=== PATIENT | female | born 2000 | race Caucasian/White ===

== ENCOUNTER 2020-04-24 06:46 | Outpatient (NON) | payer OTHER, SELFPAY ==
[2020-04-24 22:58] LABS: SARS-CoV-2 RNA PCR Negative
== END 2020-04-24 06:47 ==
PROVIDERS: PCP Pediatrics; Visit Provider Pediatrics
DX: Z20.828 Contact with and (suspected) exposure to other viral communicable diseases (principal); R50.9 Fever, unspecified; Q90.9 Down syndrome, unspecified
CPT/HCPCS: 87635; C9803; U0003

== ENCOUNTER 2022-03-01 10:23 | Emergency (ER) | payer OTHER, SELFPAY ==
[2022-03-01 10:34] VITALS: BP 102/61; PULSE 90; RESP 18; TEMP 36.7; O2SAT 100
--- NOTE | 2022-03-01 10:40 | ED.URI ---
HPI - URI/Sore Throat General Chief Complaint: Upper Respiratory Infection Stated Complaint: uri Time Seen by Provider: 03/01/22 10:55 Source: patient and RN notes reviewed Mode of arrival: ambulatory Limitations: no limitations History of Present Illness HPI Narrative: 21-year-old nonverbal female with history of Down syndrome presents with concern for red left eye with green drainage, nasal congestion, and green nasal drainage. Caregiver reports she has had symptoms for about 4 days. Mother reports she has frequent ear infections. Reports they gave her cough medicine without relief. MD elicited complaint: nasal congestion and other (eye drainage) Related Data Allergies Allergy/AdvReac Type Severity Reaction Status Date / Time No Known Allergies Allergy Verified 03/01/22 10:24 Review of Systems Review of Systems: CONSTITUTIONAL: denies fever, chills or decreased activity HEENT: Denies any eye discharge or redness. Reports green eye drainage and green nasal drainage CHEST: denies any cough, wheezing, or difficulty breathing CARDIOVASCULAR: Denies any rapid heart rate or cool extremities ABDOMINAL: Denies any vomiting, diarrhea, or poor feeding : Denies any dysuria, decreased urine frequency SKIN: Denies rash MUSCULOSKELETAL: Denies any extremity disuse or swelling NEURO: Denies any lethargy, irritability, or seizures All systems reviewed & are unremarkable except as noted in HPI and below PMFSH Comments At time of signature, agree with nursing past medical, surgical, social and family history. There is no relevant family history pertinent to the presenting complaint Exam Narrative: GENERAL: Nontoxic-appearing and in no acute distress. HEAD: Normocephalic EYES: PERRLA, conjunctivae clear ENT: Nares clear, green discharge. Mucous membranes moist. Left TM pearly barrera with dull light reflex right TM erythematous; no tragal tenderness. O NECK: Supple. No lymphadenopathy CHEST: Clear to auscultation, breath sounds equal. No wheezing, rhonchi, rales, or stridor. No respiratory distress, speaks in full sentences. HEART: Regular rate and rhythm. No murmur heard. SKIN: Warm, dry, no rash. NEURO: Alert and oriented x3. PSYCH: Normal mood and affect Course Course Emergency Course: Patient is aware of diagnosis, understands and agrees to treatment plan. Anticipatory guidance given. Patient agrees to follow-up as directed and is aware of reasons to seek care at the emergency department. Portions of this record may have been created with voice recognition software Level of Care: Express Care Visit Vital Signs Vital signs: Vital Signs Temperature 98.1 F 03/01/22 10:34 Pulse Rate 90 03/01/22 10:34 Respiratory Rate 18 03/01/22 10:34 Blood Pressure 102/61 03/01/22 10:34 Pulse Oximetry 100 03/01/22 10:34 Oxygen Delivery Room Air 03/01/22 10:34 Temperature 98.1 F 03/01/22 10:34 Pulse Rate 90 03/01/22 10:34 Respiratory Rate 18 03/01/22 10:34 Blood Pressure 102/61 03/01/22 10:34 Pulse Oximetry 100 03/01/22 10:34 Oxygen Delivery Room Air 03/01/22 10:34 Reviewed. MDM - URI/Sore Throat MDM Narrative Medical decision making narrative: Differential diagnosis considered: Khoury virus, strep pharyngitis, allergic rhinitis, upper respiratory tract infection, sinusitis, rhinosinusitis, nasopharyngitis. viral pharyngitis, otitis media, otitis externa, pneumonia, bronchitis, viral cough syndrome, viral syndrome, and influenza. Exam findings show no acute concerns or changes; patient is non-toxic appearing and is in no distress. Patient is appropriate for outpatient treatment and follow-up. Lab Data Attestation: I reviewed the patient's lab results. Critical Care Time Critical Care Time Critical Care Time: No Discharge Plan Discharge Clinical Impression: Otitis media, Conjunctivitis Patient Disposition: Home, Self-Care Condition: Stable Instructions: Antibiotic Form, Conjun
== END 2022-03-01 11:08 | disposition home or self-care (01) ==
PROVIDERS: Emergency Provider Nurse Practitioner; PCP Family Medicine
DX: H66.91 Otitis media, unspecified, right ear (principal); H10.9 Unspecified conjunctivitis; Q90.9 Down syndrome, unspecified
CPT/HCPCS: 99213; G0463

== ENCOUNTER 2023-04-11 10:03 | Outpatient (CLI) | payer OTHER, SELFPAY | END 2023-04-11 10:04 | disposition home or self-care (01) | PROVIDERS: PCP Family Medicine | DX: H91.93 Unspecified hearing loss, bilateral (principal) | CPT/HCPCS: 92567 ==

== ENCOUNTER 2024-04-16 09:10 | Outpatient (CLI) | payer OTHER, SELFPAY | END 2024-04-16 09:11 | disposition home or self-care (01) | LOC: ANHBWCAUD 09:11 | PROVIDERS: PCP Family Medicine; Visit Provider Physician Assistant | DX: H91.93 Unspecified hearing loss, bilateral (principal) | CPT/HCPCS: 92567 ==

== ENCOUNTER 2024-05-14 08:44 | Outpatient (CLI) | payer OTHER, SELFPAY | END 2024-05-14 08:45 | disposition home or self-care (01) | PROVIDERS: PCP Family Medicine; Visit Provider Family Medicine | DX: H61.23 Impacted cerumen, bilateral (principal); H69.83 Other specified disorders of Eustachian tube, bilateral | CPT/HCPCS: 92555; 92567; 92579 ==

== ENCOUNTER 2025-04-21 08:52 | Outpatient (CLI) | payer OTHER, SELFPAY ==
--- OUTSIDE RECORDS SUMMARY | 2025-04-21 09:07 | XMS_ITS | Encounter Summary ---
Author Organization [facility] Address [address] [place] [address] Phone Care Team Providers Care Audit Analyst Name Role Phone Larissa Peralta NP Primary Care Provider [phone] Encounter Details Date Type Department Care Team (Latest Contact Info) Description 04/15/2025 Results Follow-Up [facility] [address] [place] [address] [place] [address] Jocelyn Yu MD [address] [place] [address] Tissue transglutaminase IgA (TGG-IgA Ab) Social History Tobacco Use Types Packs/Day Years Used Date Smoking Tobacco: Never Smokeless Tobacco: Never [facility] Utilities Answer Date Recorded In the past 12 months has [employer], gas, oil, or water [employer] threatened to shut off services in your home? No 02/11/2024 Social Connection and Isolation Panel Answer Date Recorded In a typical week, how many times do you talk on the phone with family, friends, or neighbors? Patient declined 02/11/2024 How often do you get togethe r with friends or relatives? Patient declined 02/11/2024 How often do you attend jain or tenriism serv ices? Patient declined 02/11/2024 Do you belong to any clubs o r organizations such as jain groups, unions, fraternal or athletic groups, or school groups? Patient declined 02/11/2024 How often do you attend meet ings of the clubs or organizations you belong to? Patient declined 02/11/2024 Are you , , di vorced, , never , or living with a partner? Never 02/11/2024 AUDIT-C Answer Date Recorded Q1: How often do you have a drink containing alcohol? Never 02/04/2024 Q2: How many drinks containi ng alcohol do you have on a typical day when you are drinking? Patient does not drink Q3: How often do you have si x or more drinks on one occasion? Never 02/04/2024 Overall Financial Resource Strain (CARDIA) Answe r Date Recorded How hard is it for you to pa y for the very basics like food, housing, medical care, and heating? Not very hard 02/11/2024 PHQ-2 Answer Date Recorded PHQ-2 Total Score (If total score is 3 or more points, staff should administer the PHQ-9) 0 11/28/2022 Hunger Vital Sign Answer Date Recorded Within the past 12 months, y ou worried that your food would run out before you got the money to buy more. Never true 02/11/20 24 Within the past 12 months, t he food you bought just didn't last and you didn't have money to get more. Never true 02/11/2024 PRAPARE - Transportation Answer Date Re corded In the past 12 months, has l ack of transportation kept you from medical appointments or from getting medications? No 01/14 In the past 12 months, has l ack of transportation kept you from meetings, work, or from getting things needed for daily living? No 02/11/2024 Housing Stability Vital Sign Answer Wesley e Recorded In the last 12 months, was t here a time when you were not able to pay the mortgage or rent on time? No 02/11/2024 In the past 12 months, how m any times have you moved where you were living? 0 02/11/2024 At any time in the past 12 m [facility], were you homeless or living in a snf (including now)? No 02/11/2024 Personal Safety Answer Date Recorded Have you ever been in or are you currently in a harmful physical or emotional relationship or is someone making you feel afraid or unsafe? 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 [address] PCP - General Canvas Goods Maker 03/31/25 documented as of this encounter
--- OUTSIDE RECORDS SUMMARY | 2025-04-21 09:07 | XMS_ITS | Encounter Summary ---
Author Organization [facility] Address [address] [place] [address] Phone Care Team Providers Care Rigging And Controls Aircraft Mechanic Name Role Phone Unknown, Notinfile Primary Care Provider Unavail able Larissa Peralta NP Primary Care Provider [phone] Encounter Details Date Type Department Care Team (Late st Contact Info) Description 06/24/2024 Telephone [facility] Medicine Gastroenterology [address] [facility] [address] [place] [address] [place] [id number] Juli Dickson LPN Social History Tobacco Use Types Packs/Day Years Used Date Smoking Tobacco: Never Smokeless Tobacco: Never [facility] Utilities Answer Date Recorded In the past 12 months has e electric, gas, oil, or water company threatened to shut off services in your home? No 02/11/2024 Social Connection and Isolation Panel Answer Date Recorded In a typical week, how many times do you talk on the phone with family, friends, or neighbors? Patient declined 02/11/2024 How often do you get togethe r with friends or relatives? Patient declined 02/11/2024 How often do you attend anabaptist or adventist serv ices? Patient declined 02/11/2024 Do you belong to any clubs o r organizations such as anabaptist groups, unions, fraternal or athletic groups, or [...] any time in the past 12 m [facility], were you homeless or living in a fci (including now)? No 02/11/2024 Personal Safety Answer Date Recorded Have you ever been in or are you currently in a harmful physical or emotional relationship or is someone making you feel afraid or unsafe? 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 [address] PCP - General Director Trial 03/31/25 documented as of this encounter
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
--- OUTSIDE RECORDS SUMMARY | 2025-04-21 09:07 | XMS_ITS | Encounter Summary ---
Author Organization [facility] Address [address] [place] [address] Phone Care Team Providers Care Patient Access Name Role Phone Unknown, Notinfile Primary Care Provider Unavail able Larissa Peralta NP Primary Care Provider [phone] Encounter Details Date Type Department Care Team (Late st Contact Info) Description 04/18/2024 Orders Only [facility] Scanning, Provider Social History Tobacco Use Types Packs/Day Years Used Date Smoking Tobacco: Never Smokeless Tobacco: Never [facility] Utilities Answer Date Recorded In the past 12 months has th [employer] electric, gas, oil, or water company threatened [...] declined 02/11/2024 How often do you attend rastafari or mormonism serv ices? Patient declined 02/11/2024 Do you belong to any clubs o r organizations such as rastafari groups, unions, fraternal or athletic groups, or [...] any time in the past 12 m [facility], were you homeless or living in a correction (including now)? No 02/11/2024 Personal Safety Answer Date Recorded Have you ever been in or are you currently in a harmful physical or emotional relationship or is someone making you feel afraid or unsafe? Patient unable to answer 01/28/2024 Comments No Sex and Gender Information Value Date Recorded Sex Assigned at Not on file Legal Sex Female 12:40 AM ROADABILITY MACHINE OPERATOR Gender Identity Female 05/30/2021 1:30 PM ROADABILITY MACHINE OPERATOR Sexual Orientation Not on file documented as of this encounter Plan of Treatment Not on file documented as of this encounter Procedures Procedure Name Priority Date/Time Associated Diagnosis Comments SCAN - LABS 04/18/2024 documented in this encounter Results * SCAN - LABS (04/18/2024) us Provider Scanning Edited Result - Final documented in this encounter Visit Diagnoses Not on filedocumented in this encounter Care Teams Patient Access Relationship Specialty Start Date End Date Unknown, Notinfile PCP - General 02/15/24 03/30/25 Larissa Peralta, ACID BLOWER [address] [place] [address] PCP - General Malted Milk Mixer 03/31/25 documented as of this encounter
--- OUTSIDE RECORDS SUMMARY | 2025-04-21 09:07 | XMS_ITS | Encounter Summary ---
Author Organization [facility] Address [address] [place] [address] Phone Care Team Providers Care Health Editor Name Role Phone Unknown, Notinfile Primary Care Provider Unavail able Larissa Peralta NP Primary Care Provider [phone] Encounter Details Date Type Department Care Team (Late st Contact Info) Description 05/28/2024 Orders Only [facility] Scanning, Provider Social History Tobacco Use Types Packs/Day Years Used Date Smoking Tobacco: Never Smokeless Tobacco: Never [facility] Utilities Answer Date Recorded In the past 12 months has th [employer] electric, gas, oil, or water company threatened [...] declined 02/11/2024 How often do you attend latter-day or congregation serv ices? Patient declined 02/11/2024 Do you belong to any clubs o r organizations such as latter-day groups, unions, fraternal or athletic groups, or [...] any time in the past 12 m [facility], were you homeless or living in a alf (including now)? No 02/11/2024 Personal Safety Answer Date Recorded Have you ever been in or are you currently in a harmful physical or emotional relationship or is someone making you feel afraid or unsafe? Patient unable to answer 01/28/2024 Comments No Sex and Gender Information Value Date Recorded Sex Assigned at Not on file Legal Sex Female 12:40 AM MONOGRAM MACHINE OPERATOR Gender Identity Female 05/30/2021 1:30 PM MONOGRAM MACHINE OPERATOR Sexual Orientation Not on file documented as of this encounter Plan of Treatment Not on file documented as of this encounter Procedures Procedure Name Priority Date/Time Associated Diagnosis Comments SCAN - LABS 05/28/2024 documented in this encounter Results * SCAN - LABS (05/28/2024) us Provider Scanning Final Result documented in this encounter Visit Diagnoses Not on filedocumented in this encounter Care Teams Health Editor Relationship Specialty Start Date End Date Unknown, Notinfile PCP - General 02/15/24 03/30/25 Larissa Peralta, CARDIOPULMONARY SUPERVISOR [address] [place] [address] PCP - General Parts Professional 03/31/25 documented as of this encounter
--- OUTSIDE RECORDS SUMMARY | 2025-04-21 09:07 | XMS_ITS | Clinical Summary ---
Author Organization [facility] Address [address] [place] [address] Care Team Providers Care Welding Systems And Equipment Repairer Name Role Phone Quinn Caldera MD Primary Care Provider Source Comments [facility],non-owned Affiliates and Associated Physician Practices is amultiple site organization consisting of ambulatory clinics and hospital sitesin [place], [place], [place] and [place]. This disclosure is being madepursuant to the Care Everywhere program and may not contain all informatio navailable regarding this patient. Last updated 18.[facility] Allergies No known active allergies Medications * Be aware that medications may not be up to date on this document. Alwaysverify current medications with the patient. medroxyPROGESTE Elan (Depo-Provera) 150 MG/ML prefilled syringe Inject 150 (one hundred fifty) mg into muscle once Active vitamin D, cholecalciferol , 50 MCG (1999) tablet Take 1 (one) tablet by mouth once daily Active ascorbic acid (Vitamin C) 250 MG tablet 06/02/2023 Active cetirizine (ZyrTEC) 10 MG tablet 06/02/2023 Active furosemide (Lasix) 20 MG tablet Take 1 (one) tablet by mouth once daily Active spironolactone (Aldactone) 50 MG tablet Take 1 (one) tablet by mouth once daily Active busPIRone (Buspar) 5 MG tabletIndicatio ns:Anxiety Take 1 (one) tablet by mouth 2 times daily 62 tablet 3 03/18/2025 Active melatonin 3 MG tabletIndicatio ns:Anxiety Take 1 (one) tablet by mouth at bedtime 31 tablet 3 03/18/2025 Active Active Problems Problem Noted Date Diagnosed Date Active autistic disorder 03/18/2025 Anxiety 03/18/2025 Encounters Date Type Department Care Team Description 03/18/2025 3:20 PM CDT Video Visit [facility] Health Behavioral Health [address] [place] [address] Matilda Rodriguez APRN-CNP Anxiety ; Active autistic disorder (HCC) from Last 3 Months Social History Tobacco Use Types Packs/Day Years Used Date Smoking Tobacco: Never Smokeless Tobacco: Never Tobacco Cessation:Counseling Given: Yes Comments No Sex and Gender Information Value Date Recorded Sex Assigned at Not on file Legal Sex Female 5:39 AM DIRECTOR CHEMISTRY Gender Identity Not on file Sexual Orientation Not on file Last Filed Vital Signs Vital Sign Reading Time Taken Comments Blood Pressure 100/78 03/18/2025 2:26 PM CDT Pulse 73 03/18/2025 2:26 PM CDT Temperature - - Respiratory Rate - - Oxygen Saturation 98% 12/22/2024 3:09 PM CDT Inhaled Oxygen Concentration - - Weight 34 kg (75 lb) 03/18/2025 2:26 PM CDT Height - - Body Mass Index - - Plan of Treatment Upcoming Encounters Date Type Department Care Team (Late st Contact Info) Description 2025 3:20 PM DIRECTOR CHEMISTRY Video Visit [facility] [address] [place] [id number] Matilda Rodriguez APRN-CNP [address] [place] [address] Health Maintenance Due Date Last Done Comments HIV SCREENING 2014 HPV VACCINE (1 - 3-dose series) 2014 DTAP/TDAP/TD VACCINES (1 - Tdap) 2018 HEPATITIS B VACCINE (1 of 3 - 19+ 3-dose series) 2018 PAP SMEAR 2020 CHLAMYDIA/GONORRHEA SCREENING 11/30/2023 11/29/2022 DEPRESSION SCREENING 07/16/2024 COVID-19 VACCINE ( season) 2025 10/22/2020 INFLUENZA VACCINE (#1) 2025 , 04/09/2023, 06/27/2022, Additional history exists ZOSTER VACCINE (1 of 2) 2049 HEPATITIS C SCREENING Completed 11/29/2022 HIB VACCINE Aged Out No longer eligi ble based on patient's age to complete this topic MENINGOCOCCAL (Group B) VACCINE SHARED DECISION-MAKING Aged Out No longer eligible based on patient's age to complete this topic MENINGOCOCCAL GROUPS A/C/Y/W VACCINE Aged Out No longer eligible based on patient's age to complete this topic PNEUMOCOCCAL VACCINE Aged Out No long er eligible based on patient's age to complete this topic Insurance [facility] Care Teams Welding Systems And Equipment Repairer Relationship Specialty Start Date End Date Quinn Caldera MD [address] [place] [address] PCP - General 10/11/09
--- OUTSIDE RECORDS SUMMARY | 2025-04-21 09:07 | XMS_ITS | Encounter Summary ---
Author Organization [facility] Address [address] [place] [address] Phone Care Team Providers Care Instructional Facilitator Name Role Phone Betty Arellano DOLLYMAN, MANAGER ANALYTICAL Unavailable [phone] Lowell Castillo Primary Care Provider [phone] Reason for Visit * Reason Onset Date Comments Need Order 08/06/2024 Encounter Details Date Type Department Care Team (Late st Contact Info) Description 08/06/2024 Telephone [facility] [address] [place] [address] Lowell Castillo, PAC [address] [place] [address] Need Order Social History Tobacco Use Types Packs/Day Years Used Date Smoking Tobacco: Never Smokeless Tobacco: Never Alcohol Use Standard Drinks/Week Comments Never 0 (1 standard drink = 0.6 oz pur e alcohol) [facility] Utilities Answer Date Recorded In the past 12 months has e electric, gas, oil, or water company threatened to shut off services in your home? Patient unable to answer 11/08/2023 Social Connection and Isolation Panel Answer Date Recorded In a typical week, how many times do you talk on the phone with family, friends, or neighbors? Patient unable to answer 11/08/2023 How often do you get togethe r with friends or relatives? Patient unable to answer 11/08/2023 How often do you attend chur or pentecostalism services? Patient unable to answer 11/08/2023 Do you belong to any clubs o r organizations such as sabianism groups, unions, fraternal or athletic groups, or school groups? Patient unable to answer 11/08/2023 How often do you attend meet ings of the clubs or organizations you belong to? Patient unable to answer 11/08/2023 Are you , , di vorced, , never , or living with a partner? Patient unable to answer 11/08/2023 AUDIT-C Answer Date Recorded Q1: How often do you have a drink containing alcohol? Patient unable to answer 11/08/2023 Q2: How many drinks containi ng alcohol do you have on a typical day when you are drinking? Patient unable to answer Q3: How often do you have si x or more drinks on one occasion? Patient unable to answer 11/08/2023 Overall Financial Resource Strain (CARDIA) Answe r Date Recorded How hard is it for you to pa y for the very basics like food, housing, medical care, and heating? Patient unable to answer 11/08/2023 PHQ-2 Answer Date Recorded Total Score - Questions 1-9 0 01/13 [facility] - Occupational Stress Questionnaire Answer Date Recorded Do you feel stress - tense, restless, nervous, or anxious, or unable to sleep at night because your mind is troubled all the time - these days? Patient unable to answer 11/08/2023 Exercise Vital Sign Answer Date Recorde d On average, how many days pe r week do you engage in moderate to strenuous exercise (like a brisk walk)? Patient unable to answer 11/08/2023 On average, how many minutes do you engage in exercise at this level? Patient unable to answer 11/08/2023 Hunger Vital Sign Answer Date Recorded Within the past 12 months, y ou worried that your food would run out before you got the money to buy more. Patient unable to answer 11/08/2023 Within the past 12 months, t he food you bought just didn't last and you didn't have money to get more. Patient unable to answer 11/08/2023 PRAPARE - Transportation Answer Date Re corded In the past 12 months, has l ack of transportation kept you from medical appointments or from getting medications? Patient unable to answer 11/08/2023 In the past 12 months, has l ack of transportation kept you from meetings, work, or from getting things needed for daily living? Patient unable to answer 11/08/2023 Housing Stability [...] place to sleep or slept in a mcc (including now)? Patient unable to answer 11/08/2023 Sexually Active Control Partners Comments Never Injection Comments Unknown Sex and Gender Information Value Date Recorded Sex Assigned at Female 02/27/2023 9:17 AM CDT Legal Sex Female 12:35 PM SUPERVISOR COREMAKER Gender Identity Female 02/27/2023 9:17 AM CDT Sexual Orientation Not on file documented as of this encounter Miscellaneous Notes * Telephone Encounter - Lowell Castillo PAC - 08/06/2024 12:10 PM SUPERVISOR COREMAKER Just a lipid and TSH. Looks like hematology has ordered other labs that will cover her yearly fasting labs. Orders placed. RVISOR COREMAKER * Telephone Encounter - Yue Borjas RN - 08/06/2024 11:47 AM SUPERVISOR COREMAKER Situation: Annual lab orders Background: [facility] from [facility] contacting PCP office. Caller is listed on current personal direct sales representative designee form on file. Assessment: Juli was advised of future lab orders. Ujli requesting to confirm with PCP if any other lab work is necessary. Recommendation: Could provider please advise which labs are necessary for an annual follow up? Juli needs annual lab orders faxed to her office to ensure orders are carried out. Encounter routed to provider to notify. RVISOR COREMAKER documented in this encounter Plan of Treatment Upcoming Encounters Date Type Department Care Team (Late st Contact Info) Description 04/23/2025 1:00 PM CDT Office Visit [facility] Oncology Services [address] [place] [address] Costa De La Garza MD [address] [place] [address] Discharge Disposition: Discharged to home or Selfcare 09/23/2025 9:30 AM CDT Office Visit [facility] - Primary Care - [place] [address] [place] [phone] Lowell Castillo PAC [address] [place] [address] documented as of this encounter Visit Diagnoses Diagnosis Encounter for lipid screening for cardiovascular disease- Primary Screening for thyroid disorder documented in this encounter Additional Health Concerns Assessment Noted Time PHQ-9 Depression Total Score: 0 01/26/20 9:00 AM CDT documented as of this encounter Care Teams Instructional Facilitator Relationship Specialty Start Date End Date Lowell Castillo PAC [address] [place] [address] PCP - General Physician Assessment Expert 08/04/24 Betty Arellano, DOLLYMAN, MANAGER ANALYTICAL [address] [place] [address] Nurse Practitioner Advanced Practice Nurse 05/15/24 documented as of this encounter
--- OUTSIDE RECORDS SUMMARY | 2025-04-21 09:07 | XMS_ITS | Encounter Summary ---
Author Organization [facility] Address [address] [place] [address] Phone Care Team Providers Care Php Engineer Name Role Phone Betty Arellano BAKER CHEF, WASH HOUSE SUPERVISOR Unavailable [phone] Lowell Castillo PAC Primary Care Provider [phone] Reason for Visit * Reason Onset Date Comments Appointment 02/13/2025 Encounter Details Date Type Department Care Team (Late st Contact Info) Description 02/13/2025 Telephone [facility] Call [facility] [address] [place] [address] Lowell Castillo, PAC [address] [place] [address] Appointment Social History Tobacco Use Types Packs/Day Years Used Date Smoking Tobacco: Never Smokeless Tobacco: Never Alcohol Use Standard Drinks/Week Comments Never 0 (1 standard drink = 0.6 oz pur e alcohol) [facility] Utilities Answer Date Recorded In [...] declined 10/08/2024 How often do you attend holiness or orthodoxy serv ices? Patient declined 10/08/2024 Do you belong to any clubs o r organizations such as holiness groups, unions, fraternal or athletic groups, or [...] Total Score - Questions 1-9 0 01/13 [facility] - Occupational Stress Questionnaire Answer Date Recorded [...] place to sleep or slept in a correction (including now)? Patient unable to answer 11/08/2023 [...] any time in the past 12 m [facility], were you homeless or living in a correction (including now)? Patient declined 10/08/2024 Sexually Active Control Partners Comments Never Injection Comments Unknown Sex and Gender Information Value Date Recorded Sex Assigned at Female 02/27/2023 9:17 AM CDT Legal Sex Female 12:35 PM FOOD PRODUCTION MACHINE OPERATOR Gender Identity Female 02/27/2023 9:17 AM CDT Sexual Orientation Not on file documented as of this encounter Miscellaneous Notes * Telephone Encounter - Cuong Pickering - 02/13/2025 3:54 PM CDT Symptom: Rash or Redness on One Body Area Only Outcome: Schedule an appointment at earliest convenience. Reason: Caller denied all higher acuity questions The caller accepted this outcome. Caller Denied: * Dark blood red spots (not pink) * Purple spots * Skin is painful to touch * Fast-spreading redness documented in this encounter Plan of Treatment Upcoming Encounters Date Type Department Care Team (Late st Contact Info) Description 04/23/2025 1:00 PM CDT Office Visit [facility] Oncology Services [address] [place] [phone] Costa De La Garza MD [address] [place] [address] Discharge Disposition: Discharged to home or Selfcare 09/23/2025 9:30 AM CDT Office Visit [facility] - Primary Care - [place] [address] [place] [address] Lowell Castillo PAC [address] [place] [address] documented as of this encounter Visit Diagnoses Not on filedocumented in this encounter Additional Health Concerns Assessment Noted Time PHQ-9 Depression Total Score: 0 01/26/20 23 9:00 AM CDT documented as of this encounter Care Teams Php Engineer Relationship Specialty Start Date End Date Lowell Castillo PAC [address] [place] [address] PCP - General Physician Bottom Stop Attacher 08/04/24 Betty Arellano, BAKER CHEF, WASH HOUSE SUPERVISOR [address] [place] [address] Nurse Practitioner Advanced Practice Nurse 05/15/24 documented as of this encounter
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
== END 2025-04-21 08:53 | disposition home or self-care (01) ==
LOC: ANHBWCAUD 08:53
DX: H91.93 Unspecified hearing loss, bilateral (principal)
CPT/HCPCS: 92567